=== PATIENT | female | born 1995 | race Caucasian/White ===

== ENCOUNTER 2019-02-17 02:38 | Emergency (ER) | payer BC, OTHER, SELFPAY ==
[2019-02-17 02:41] VITALS: BP 129/96; PULSE 65; RESP 18; TEMP 36.7; O2SAT 98
--- NOTE | 2019-02-17 02:46 | W.ED.GENAD ---
Discharge Plan Disposition Patient Disposition: HOME Condition: Stable Discharge Details Chief Complaint: Chest Pain Clinical Impression: Chest pain, Costochondritis Primary Care Provider: None,None ED Provider: Beto Hernadez Home Meds and New Rx's Prescriptions: No Action No Known Home Meds RF: 0 Discharge Instructions Instructions: Chest Pain (ED) Additional Instructions: You had no evidence of a heart attack, and your heart and lungs appeared normal on the ultrasound I placed you on our follow up list to get established with a primary care provider if you have severe worsening pain or new symptoms such as fevers or difficutly breathing return to the emergency department Stand Alone Forms: Work Release Medical Decision Making 23 yo female comes in with chest pain that started around 11am. She just moved here from [place] and states she has a history of inflammation of her chest wall. Denies any recent immobilization. Denies radiation of the pain and states the pain is sharp and in the anterior chest. She denies smoking or drug use, does drink occasionally. She does appear anxious on exam. She has reproducible anterior chest wall pain on exam so I suspect costochondritis. She is wells score low and perc negative so do not feel workup for PE indiated. HAs no pericardial effusion on bedside u/s and no evidence of ptx in either lung. Will obtain ecg and troponin, heart score is 0, if negative given over 3 horus of pain do not feel repeat troponin indicated. No tearing back pain and normal vascular exam so doubt dissection patient's labs unremarkable and she remains stable. She states this happened a few years ago and they gave her toradol which helped which I will order here as I suspect costochondritis. Will place on our f/u list to get set up with pcp in the area within 1-2 weeks for chest pain, return precautions given Differential Diagnosis Differential Diagnosis: nstemi, pericarditis, pe ECG Data Attestation: I personally reviewed and interpreted this ECG (s) as follows: Prior ECG tracings: not available for review Interpretation: sinus rhythm, rate of 60, pr 134, qtc [address] t wave ischemic findings, no evidence of brugada, wpw, pericarditis HPI General Mode of arrival: ambulatory. Date/Time Provider Initiated Documentation: 02/17/19 02:40. Limitations to Documentation: no limitations. Information obtained by: patient. History of Present Illness 23 year old F presents to the emergency department with the chief complaint of chest pain, described as moderate, with intensity rated at 7. Quality is described as sharp, and is localized to the chest. Patient reports no radiation. No relieving factors improve symptom(s), No exacerbating factors reported . Patient did receive the following treatments prior to arrival, NSAID and Aspirin Related Data Home Medications Medication Instructions Recorded Confirmed Unknown [No Known Home Meds] 02/17/19 02/17/19 Allergies Allergy/AdvReac Type Severity Reaction Status Date / Time Iodine and Iodide Containing Allergy Severe Anaphylaxsi Unverified 02/17/19 02:49 Produc s General Stated Complaint: Chest Pain JUDITH: 2 Review of Systems Review of Systems ROS Unobtainable: All systems reviewed & are unremarkable except as noted in HPI and below Constitutional Constitutional: Denies chills and Denies fever(s) ENT Ears, Nose, Mouth, and Throat: Denies change in voice Cardiovascular Cardiovascular: Denies dyspnea Respiratory Respiratory: Denies dyspnea Gastrointestinal Gastrointestinal: Denies abdominal pain, Denies nausea and Denies vomiting Psychiatric Psychiatric: Denies depression [facility] Social History Smoking/Tobacco Use Status: Never Alcohol Intake: current Alcohol Intake frequency: a few times a week Alcohol type: beer Drug use: Never Substance use type: does not use Do you feel safe at home: Yes Do you feel safe in your relationship?: Yes Exam Const General: anxious Orientation: alert HENMT Head: normal to inspection Ears: external ears normal General nose exam: external nose normal Mouth: moist mucous membranes Eyes General: appearance normal, both eyes and all related structures Neck Neck: normal visual inspection Resp Effort & Inspection: normal respiratory effort and able to speak in complete sentences Cardio Rate: regular rate Skin General skin exam: no rashes or lesions noted Neuro General: alert and oriented x3 Extrem General: normal to inspection Psych Mental Status: mental status grossly normal Course Vital Signs Vital signs: Vital Signs Temperature 36.7 C 02/17/19 02:41 Pulse 65 02/17/19 02:41 Respiratory Rate 18 02/17/19 02:41 Blood Pressure 129/96 H 02/17/19 02:41 Pulse Oximetry 98 02/17/19 02:41 Temperature 36.7 C 02/17/19 02:41 Temperature Source Skin 02/17/19 02:41 Pulse 65 02/17/19 02:41 Respiratory Rate 18 02/17/19 02:41 Blood Pressure 129/96 H 02/17/19 02:41 Blood Pressure Position Sitting 02/17/19 02:41 Pulse Oximetry 98 02/17/19 02:41 Oxygen Delivery Method Room Air 02/17/19 02:41 Oxygen Flow Rate 0 02/17/19 02:41 Pain Level 8 02/17/19 02:41 Comment 02/17/19 02:41
[2019-02-17 03:13] LABS: Abs Immature Grans 0.02 k/cumm (0.0-0.09); Absolute Basophil Count 0.03 k/cumm (0.0-0.2); Absolute Eosinophil Count 0.24 k/cumm (0.0-0.7); Absolute Lymphocyte Count 2.51 k/cumm (1.2-3.4); Absolute Neutrophil Count 6.54 k/cumm (1.2-6.7); Basophils % 0.3; Eosinophils % 2.3; HCT 38.4 % (36.0-46.0); HGB 13.4 g/dL (12.0-15.5); Immature Grans % 0.2; Lymphocytes % 24.5; Mean Corp. HGB Concentration 34.9 g/dL (32.0-36.0); Mean Corpuscular Hemoglobin 30.9 pg (27.0-33.0); Mean Corpuscular Volume 88.5 fL (80-95); Mean Platelet Volume 10.2 fL (8.0-11.0); Monocytes % 8.8; Neutrophils % 63.9; Platelet Count 321 x1000/uL (130-400); RBC 4.34 m/cumm (4.00-5.20); RBC Distribution Width 11.8 % (11.7-14.6); White Blood Cell Count 10.24 k/cumm (4.4-10.8)
[2019-02-17 03:37] LABS: Albumin 4.2 g/dL (3.4-5.0); BUN 12 mg/dL (7-18); Chloride 105 mmol/L (98-107); Glucose 92 mg/dL (70-100); Potassium 3.9 mmol/L (3.5-5.1); Sodium 139 mmol/L (136-145)
[2019-02-17 04:00] LABS: ALT 19 U/L (14-59); AST 12 U/L (15-37); Alkaline Phosphatase 75 U/L (46-116); Anion Gap 10.1 mmol/L (3-11); Bilirubin, Total 0.6 mg/dL (0.2-1.0); CO2 23.9 mmol/L (21.0-32.0); CREATININE 0.85 mg/dL (0.55-1.02); Calcium 9.1 mg/dL (8.5-10.1); Total Protein 7.6 g/dL (6.4-8.2)
[2019-02-17 04:02] LABS: Troponin I < 0.05 ng/mL (0.00-0.06)
[2019-02-17] MEDS: Ketorolac 15 MG/ML VIAL IM (04:17)
== END 2019-02-17 04:16 | disposition home or self-care (01) ==
PROVIDERS: Emergency Provider Emergency Medicine
DX: M94.0 Chondrocostal junction syndrome [Tietze] (principal)
CPT/HCPCS: 36415; 80053; 93005; 96372; 99284; 84484; 85025; 93010; J1885

== ENCOUNTER 2019-05-27 20:34 | Emergency (ER) | payer BC, OTHER, SELFPAY ==
[2019-05-27 20:38] VITALS: BP 131/73; PULSE 104; RESP 16; TEMP 36.8; O2SAT 97
--- NOTE | 2019-05-27 20:47 | W.ED.GENAD ---
Discharge Plan Disposition Patient Disposition: HOME Condition: Improving Discharge Details Chief Complaint: Sorethroat Clinical Impression: Exudative pharyngitis Primary Care Provider: MartinaLocal ED Provider: Trey Vazquez Home Meds and New Rx's Prescriptions: New penicillin V potassium 500 mg tablet 500 mg PO TID 10 Days Qty: 30 RF: 0 Discharge Instructions Instructions: Pharyngitis (ED) Additional Instructions: Small, frequent sips of fluids to maintain hydration. Tylenol and/or ibuprofen as needed for pain. Take penicillin as prescribed. We will ask our care management team to help you establish care with a regular doctor in this community. Medical Decision Making 23-year-old female presents from home with 2 days of sore throat, submandibular lymphadenopathy. She has had no change to voice, tolerating secretions, able to eat and drink. Her exam is consistent with an exudative pharyngitis. I will treat with a course of penicillin. We will refer her to establish primary care. She understands homecare as well as indications to return for repeat evaluation. [facility] General Mode of arrival: ambulatory. Date/Time Provider Initiated Documentation: 05/27/19 20:34. Limitations to Documentation: no limitations. History of Present Illness 23 year old F presents to the emergency department with the chief complaint of Sore throat and swallowing, described as moderate, Quality is described as dull and constant, and is localized to the face and mouth. Patient reports no radiation. Patient started experiencing this day(s) and it has been constant. No relieving factors improve symptom(s), No exacerbating factors reported . Patient notes fever/chills and loss of appetite; denies chest pain, cough, nausea/vomiting, seizure, shortness of breath and syncope. Patient did receive the following treatments prior to arrival, none Related Data Home Medications Medication Instructions Recorded Confirmed penicillin V potassium 500 mg PO TID 10 Days #30 tab 05/27/19 Previous Rx's Medication Instructions Recorded penicillin V potassium 500 mg PO TID 10 Days #30 tab 05/27/19 Allergies Allergy/AdvReac Type Severity Reaction Status Date / Time Iodine and Iodide Containing Allergy Severe Anaphylaxsi Unverified 05/27/19 20:40 Produc s General Stated Complaint: Sorethroat JUDITH: 4 Review of Systems Narrative: 6 systems reviewed and otherwise negative REPLACED BY [facility] Social History Smoking/Tobacco Use Status: Never Alcohol Intake: current Alcohol Intake frequency: a few times a week Alcohol type: beer Drug use: Never Substance use type: does not use Do you feel safe at home: Yes Do you feel safe in your relationship?: Yes Exam Narrative Exam Narrative: GEN: awake, alert, oriented 3. Pleasant, well groomed, interactive. HEAD: Normocephalic, atraumatic ENT: Mucous membranes moist, oropharynx with erythematous tonsillar pillars, overlying white exudate on the left. Tympanic membranes clear, External ear exam unremarkable EYES: PERRL, EOMI NECK: Full ROM, anterior submandibular MYRNA, no menigismus CHEST/RESP: Nontender, clear to auscultation bilateral, no wheeze/rhonchi/rales CARDIOVASCULAR: RRR, no murmur, rub gracie. 2+ Rad pulse bilateral EXT: Full ROM, no edema, no rash Neuro: Grossly normal neurologic exam, conversant, interactive. Psych: Speech fluent, thoughts congruent, affect normal Course Vital Signs Vital signs: Vital Signs Temperature 36.8 C 05/27/19 20:38 Pulse 104 H 05/27/19 20:38 Respiratory Rate 16 05/27/19 20:38 Blood Pressure 131/73 05/27/19 20:38 Pulse Oximetry 97 05/27/19 20:38 Temperature 36.8 C 05/27/19 20:38 Temperature Source Temporal Artery Scan 05/27/19 20:38 Pulse 104 H 05/27/19 20:38 Respiratory Rate 16 05/27/19 20:38 Respiratory Effort Non-Labored 05/27/19 20:38 Blood Pressure 131/73 05/27/19 20:38 Blood Pressure Position Sitting 05/27/19 20:38 Pulse Oximetry 97 05/27/19 20:38 Oxygen Delivery Method Room Air 05/27/19 20:38 Oxygen Flow Rate 0 05/27/19 20:38 Lab/Test Results Lab/Test Results: POC Strep Test-MERT(Rapid) Start: 05/27/19 20:39 Freq: .Rapid Strep Test Status: Active Protocol: Document 05/27/19 20:45 BS (Rec: 05/27/19 20:45 BS [email or web address]) Strep test-MERT(Rapid)-POC POC-Strep test-MERT (Rapid) Negative POC-Strep test-MERT (Rapid) Negative
[2019-05-27] MEDS: Ibuprofen 800 MG TAB PO (20:52)
[2019-05-27] MEDS: Penicillin V POTASSIUM 500 MG TAB PO (20:52)
== END 2019-05-27 20:55 | disposition home or self-care (01) ==
PROVIDERS: Emergency Provider Emergency Medicine
DX: J02.8 Acute pharyngitis due to other specified organisms (principal)
CPT/HCPCS: 87880; 99283

== ENCOUNTER 2019-09-16 11:18 | Outpatient (CLI) | payer BC, OTHER, SELFPAY ==
[2019-09-17 16:05] LABS: COVID-19 RT-PCR Result Negative (Negative)
== END 2019-09-16 11:38 ==
PROVIDERS: PCP Family Medicine; Visit Provider Family Medicine
DX: Z11.59 Encounter for screening for other viral diseases (principal)
CPT/HCPCS: U0003

== ENCOUNTER 2020-05-03 17:25 | Emergency (ER) | payer BC, OTHER, SELFPAY ==
[2020-05-03 17:29] VITALS: BP 120/71; PULSE 100; RESP 20; TEMP 36.6; O2SAT 100
--- NOTE | 2020-05-03 17:30 | DI.RAD_ITS ---
EXAM: XR SHOULDER RT COMPLETE 2+V CLINICAL HISTORY: right anterior shoulder pain. TECHNIQUE: 2D digital imaging was performed. COMPARISON: No exams were available for comparison FINDINGS: No evidence of fracture or dislocation. No abnormal soft tissue calcifications. Bone density normal . No osseous lesions. IMPRESSION: No significant radiographic findings in the right shoulder. DATA REPOSITORY: RADIATION DOSE DELIVERED:
--- NOTE | 2020-05-03 17:37 | W.ED.GENAD ---
Discharge Plan Disposition Patient Disposition: HOME Condition: Stable Discharge Details Clinical Impression: Biceps tendinitis of right shoulder Primary Care Provider: Danii Rivers ED Provider: Katlyn Le Home Meds and New Rx's Prescriptions: No Action No Known Home Meds RF: 0 Discharge Instructions Instructions: Tendinitis (ED) Additional Instructions: rest right shoulder, no lifting. ibuprofen 600 mg four times daily with food for 5 days, then as needed. can add acetaminophen 650 mg inbetween doses if needed for pain use ice to affected area 20 minutes 4-5 times daily, after 1-2 days can use heat or ice. Referrals: Occupational Medicine [Outside] ORTHOPAEDICS,[facility] [OTHER] - (one week if not improving with rest, NSAIDS and ice) Discharge Data Discharge Date/Time-TO BE ENTERED AT DEPARTURE: 05/03/20 18:14 Medical Decision Making pain to right shoulder with no injury. xray with no acute findings advise ibuprofen/acetaminophen and rest. ice or heat. f/u with orthopedics Medical Records Medical records reviewed: Yes I reviewed the patient's medical records. Medical records narrative: PROCEDURE INFORMATION: Exam: XR Right Shoulder Exam date and time: 05/03/2020 6:04 PM Age: 24 years old Clinical indication: Other: Right anterior shoulder pain TECHNIQUE: Imaging protocol: XR Right shoulder. Views: 2 or more views. COMPARISON: No relevant prior studies available. FINDINGS: Bones/joints: Normal. Soft tissues: Normal. IMPRESSION: No acute findings. Dictated and Authenticated by: Meek Best MD. Ordering:DON Potts MD [facility] General Mode of arrival: ambulatory. Date/Time Provider Initiated Documentation: 05/03/20 17:25. Limitations to Documentation: no limitations. Information obtained by: patient. HPI Narrative: Patient presents with a 1 day history of anterior right shoulder pain that radiates down the front of her arm. She denies any specific injury that she can recall. She works as a sales and service officer. She noticed the pain worse this morning and thought it had to do with sleep position. She has taken 2 doses of ibuprofen today and states that her pain persists. There is no obvious deformity rashes bruises or sign of trauma. Sensation and movement is intact distally she has no swelling to her hand pulses are strong and regular. Related Data Home Medications Medication Instructions Recorded Confirmed Unknown [No Known Home Meds] 05/03/20 05/03/20 Allergies Allergy/AdvReac Type Severity Reaction Status Date / Time Iodine and Iodide Containing Allergy Severe Anaphylaxsi Unverified 05/03/20 17:31 Produc s General Stated Complaint: Orthopedic JUDITH: 4 Review of Systems Constitutional Constitutional: Denies fever(s) Musculoskeletal Musculoskeletal: Denies deformity, Reports arthralgias, Denies joint swelling, Denies numbness, Reports radiating pain into limb (distally) and Denies tingling Integumentary/Breasts Skin/Breast: Denies new lesions and Denies rash Neurologic Neurologic: Denies numbness and Denies tingling Hematologic/Lymphatic Hematologic/Lymphatic: Denies easy bleeding PFSH Social History Smoking/Tobacco Use Status: Never Smoking risk assessment performed?: Yes Alcohol Intake: current Alcohol Intake frequency: a few times a week Alcohol type: beer Drug use: Never Substance use type: does not use Do you feel safe at home: Yes Do you feel safe in your relationship?: Yes Exam Const General: cooperative, healthy appearing and no acute distress Nutritional Appearance: average body habitus Orientation: alert, awake and oriented x3 HENMT Head: normal to inspection, normocephalic and atraumatic Mouth: oral mucosae normal Chest Chest: normal inspection of the chest Resp Effort & Inspection: normal respiratory effort Cardio Rate: regular rate Rhythm: regular rhythm (radial pulse) Back/Spine/Pelvis Cervical Spine: normal cervical lordosis Thoracic/Lumbar Spine: thoracic and lumbar spine normal to inspection Skin General skin exam: no rashes or lesions noted Neuro General: patient alert, patient awake, patient oriented x3 and no focal motor deficits Extrem General: normal to inspection Right upper extremity: normal capillary refill and shoulder/upper arm Details: normal to inspection and tenderness Location: of the proximal humerus and over the biceps tendon; not of the clavicle, not of the A-C joint and not of the scapula; ROM limited (can abduct to 90 degree without pain, stops at 120 d/t pain,), no cyanosis and no edema Left upper extremity: normal to inspection and full ROM Course Vital Signs Vital signs: Vital Signs Temperature 36.6 C 05/03/20 17:29 Pulse 100 H 05/03/20 17:29 Respiratory Rate 20 05/03/20 17:29 Blood Pressure 120/71 05/03/20 17:29 Pulse Oximetry 100 05/03/20 17:29 Temperature 36.6 C 05/03/20 17:29 Temperature Source Skin 05/03/20 17:29 Pulse 100 H 05/03/20 17:29 Respiratory Rate 20 05/03/20 17:29 Respiratory Effort Non-Labored 05/03/20 17:32 Blood Pressure 120/71 05/03/20 17:29 Blood Pressure Position Sitting 05/03/20 17:29 Pulse Oximetry 100 05/03/20 17:29 Oxygen Delivery Method Room Air 05/03/20 17:29 Oxygen Flow Rate 0 05/03/20 17:29 Pain Level 8 05/03/20 17:29
--- NOTE | 2020-05-03 18:10 | DI.VRAD_ITS ---
PROCEDURE INFORMATION: Exam: XR Right Shoulder Exam date and time: 05/03/2020 6:04 PM Age: 24 years old Clinical indication: Other: Right anterior shoulder pain TECHNIQUE: Imaging protocol: XR Right shoulder. Views: 2 or more views. COMPARISON: No relevant prior studies available. FINDINGS: Bones/joints: Normal. Soft tissues: Normal. IMPRESSION: No acute findings. Dictated and Authenticated by: Meek Best MD. Ordering:DON Potts MD
== END 2020-05-03 18:14 | disposition home or self-care (01) ==
PROVIDERS: Emergency Provider Nurse Practitioner Acute Care; PCP Family Medicine
DX: M75.21 Bicipital tendinitis, right shoulder (principal)
CPT/HCPCS: 99283; 73030

== ENCOUNTER 2020-09-17 16:53 | Outpatient (REF) | payer OTHER, SELFPAY ==
[2020-09-21 14:51] LABS: Chlamydia Result Negative (Negative); GC Result Negative (Negative)
== END 2020-09-17 16:54 | disposition home or self-care (01) ==
LOC: LBN 16:53
PROVIDERS: PCP Family Medicine; Visit Provider Obstetrics & Gynecology Gynecology
DX: Z11.3 Encounter for screening for infections with a predominantly sexual mode of transmission (principal)
CPT/HCPCS: 87491; 87591

== ENCOUNTER 2022-03-16 02:16 | Outpatient (CLI) | payer OTHER, SELFPAY ==
[2022-03-16 14:50] LABS: Kit/Specimen SENT
[2022-03-16 14:57] LABS: Abs Immature Grans 0.04 10^3/uL (0.0-0.06); Absolute Lymphocyte Count 1.43 10^3/uL (1.2-3.4); Basophils % 0.3; Eosinophils % 0.8; HCT 35.6 % (36.0-46.0); HGB 12.4 g/dL (11.2-15.7); Immature Grans % 0.3; MCH 30.8 pg (27.0-33.0); MCHC 34.8 % (32.0-36.0); MCV 88 fL (80-95); MPV 10.4 fL (8.0-11.0); Monocytes % 5.9; Neutrophils % 80.7; Platelet Count 262 10^3/uL (130-400); RBC 4.03 10^6/uL (3.93-5.22); RDW 11.4 % (11.7-14.6); RDW-SD 36.6 fL; WBC 11.94 10^3/uL (4.4-10.8)
[2022-03-16 15:03] LABS: Absolute Basophil Count 0.04 10^3/uL (0.0-0.2); Absolute Neutrophil Count 9.64 10^3/uL (1.2-6.7)
[2022-03-17 09:52] LABS: Hepatitis B Surface Ag Negative (Negative)
[2022-03-17 10:20] LABS: HIV-1/2 Ag & Ab Screen Negative (Negative)
[2022-03-17 10:35] LABS: Varicella IgG Antibody Positive (See Note)
[2022-03-17 10:39] LABS: Rubella IgG Ab (UVM) Positive (See Note)
[2022-03-17 10:40] LABS: Hepatitis C Ab w Rflx HCV PCR Negative (Negative)
[2022-03-17 18:35] LABS: Syphilis IgG w/Reflex Nonreactive (Nonreactive)
== END 2022-03-16 02:17 | disposition home or self-care (01) ==
LOC: LBO 02:16
PROVIDERS: PCP Family Medicine; Visit Provider Advanced Practice Midwife
DX: Z34.01 Encounter for supervision of normal first pregnancy, first trimester (principal)
CPT/HCPCS: 36415; 86787; 86803; 86850; 86900; 86901; 87340; 87389; 85025; 86762; 86780

== ENCOUNTER 2022-03-16 15:59 | Outpatient (REF) | payer OTHER, SELFPAY ==
--- NOTE | 2022-03-16 13:55 | PAPFT_PTH ---
PATIENT: Selina AGUILERA LOC: [facility] U#:[id number] AGE/SX: 26/F ROOM: RE03/16/[address]: Anitra Dunn CNM : 1995 BED: DIS: 03/16/2022 SPEC #: [id number] RECD: 03/16/22 17:46 STATUS: GALLITO REQ #: [id number] MARGARET: 03/16/22 13:[address]: Anitra Dunn DEPT: [facility] Cytology RECD BY: Dana Garcia ENTERED: 03/16/22 17:47 SP TYPE: PAPFT OTHR DR: Danii Rivers Tissues: 1 - CX/ENDOCX FOR PAP SMEARS Procedures: PAP THIN PREP/[facility] Screening Comments: [id number]
[2022-03-16 16:59] LABS: *AMPHETAMINES SCREEN URINE Negative (Negative); *BARBITURATES SCREEN URINE Negative (Negative); *BENZODIAZEPINES SCREEN URINE Negative (Negative); Cannabinoids THC Negative (Negative); Cocaine Screen,Urine Negative (Negative); METHADONE URINE SCREEN Negative (Negative); OPIATES URINE SCREEN Negative (Negative)
[2022-03-16 17:00] LABS: Tricyclic Antidepressants Negative (Negative)
[2022-03-19 09:39] LABS: Chlamydia Result Negative (Negative); GC Result Negative (Negative)
[2022-03-25 12:02] LABS: Buprenorphine Negative ng/mL (Cutoff: 5.0); Norbuprenorphine Negative ng/mL (Cutoff: 2.5)
== END 2022-03-16 16:00 | disposition home or self-care (01) ==
LOC: LBN 15:59
PROVIDERS: PCP Family Medicine; Visit Provider Advanced Practice Midwife
DX: Z34.91 Encounter for supervision of normal pregnancy, unspecified, first trimester (principal); Z12.4 Encounter for screening for malignant neoplasm of cervix
CPT/HCPCS: 80307; 80348; 87491; 87591; 88142; 87086; 87480; 87510; 87660

== ENCOUNTER 2022-04-15 15:56 | Outpatient (REF) | payer BC, SELFPAY | END 2022-04-15 15:57 | disposition home or self-care (01) | LOC: LBN 15:56 | PROVIDERS: PCP Family Medicine; Visit Provider Advanced Practice Midwife | DX: N89.8 Other specified noninflammatory disorders of vagina (principal) | CPT/HCPCS: 87480; 87510; 87660 ==

== ENCOUNTER 2022-07-06 04:01 | Outpatient (CLI) | payer BC, SELFPAY ==
[2022-07-06 09:27] LABS: HCT 31.7 % (36.0-46.0); HGB 10.6 g/dL (11.2-15.7); MCH 29.9 pg (27.0-33.0); MCHC 33.4 % (32.0-36.0); MCV 90 fL (80-95); MPV 10.3 fL (8.0-11.0); Platelet Count 196 10^3/uL (130-400); RBC 3.54 10^6/uL (3.93-5.22); RDW 12.8 % (11.7-14.6)
[2022-07-06 09:43] LABS: Glucose,1 Hr (Glucola) 172 mg/dL (80-140)
== END 2022-07-06 04:02 | disposition home or self-care (01) ==
LOC: LBO 04:01
PROVIDERS: PCP Family Medicine; Visit Provider Advanced Practice Midwife
DX: Z28.310 Unvaccinated for COVID-19; O99.012 Anemia complicating pregnancy, second trimester
CPT/HCPCS: 36415; 82950; 85027

== ENCOUNTER 2022-07-20 02:32 | Outpatient (CLI) | payer BC, SELFPAY ==
[2022-07-20 10:35] LABS: Glucose 1 Hour 152 mg/dL
[2022-07-20 12:53] LABS: Glucose 3 Hour 107 mg/dL
== END 2022-07-20 02:33 | disposition home or self-care (01) ==
LOC: LBO 02:32
PROVIDERS: PCP Family Medicine; Visit Provider Advanced Practice Midwife
DX: Z34.93 Encounter for supervision of normal pregnancy, unspecified, third trimester (principal); Z3A.29 29 weeks gestation of pregnancy
CPT/HCPCS: 36415; 82951